=== PATIENT | female | born 1950 | race African-American/Black ===

== ENCOUNTER 2016-06-02 16:05 | Emergency (ER) | payer MEDICARE, OTHER ==
[~2016-06-02 16:05] MED LIST: ATV.5 PO; COG2 PO; K-TABS10 MEQ PO; L20 PO; MICRO-K10 MEQ PO; NAVANE10 MG OR; NAVANE5 MG OR; PR25 PO; [UNRECOGNIZED DRUG - REMARK] PO
== END 2016-06-02 16:14 | disposition home or self-care (01) ==
LOC: ER 16:05
DX: B34.9 Viral infection, unspecified (principal); I10 Essential (primary) hypertension; K21.9 Gastro-esophageal reflux disease without esophagitis; F32.9 Major depressive disorder, single episode, unspecified; F41.9 Anxiety disorder, unspecified; Z79.899 Other long term (current) drug therapy; Z88.8 Allergy status to other drugs, medicaments and biological substances
CPT/HCPCS: 71020; 99284

== ENCOUNTER 2016-07-04 04:52 | Emergency (ER) | payer MEDICARE, OTHER | END 2016-07-04 05:59 | disposition home or self-care (01) | LOC: ER 04:52 | DX: K02.9 Dental caries, unspecified (principal); I10 Essential (primary) hypertension; K21.9 Gastro-esophageal reflux disease without esophagitis; F41.9 Anxiety disorder, unspecified; F32.9 Major depressive disorder, single episode, unspecified; Z88.8 Allergy status to other drugs, medicaments and biological substances; Z79.899 Other long term (current) drug therapy | CPT/HCPCS: 96372; 99283; J1885 ==

== ENCOUNTER 2016-07-06 03:30 | Emergency (ER) | payer MEDICARE, OTHER | END 2016-07-06 04:09 | disposition home or self-care (01) | LOC: ER 03:30 | DX: K08.89 Other specified disorders of teeth and supporting structures (principal); Z88.8 Allergy status to other drugs, medicaments and biological substances; Z79.899 Other long term (current) drug therapy | CPT/HCPCS: 99283 ==

== ENCOUNTER 2016-07-09 02:23 | Emergency (ER) | payer MEDICARE, OTHER | END 2016-07-09 02:28 | disposition home or self-care (01) | LOC: ER 02:23 | DX: M79.89 Other specified soft tissue disorders (principal); I10 Essential (primary) hypertension; K21.9 Gastro-esophageal reflux disease without esophagitis; F32.9 Major depressive disorder, single episode, unspecified; F41.9 Anxiety disorder, unspecified; Z88.8 Allergy status to other drugs, medicaments and biological substances; Z79.899 Other long term (current) drug therapy | CPT/HCPCS: 71010; 93005; 99284 ==